=== PATIENT | female | born 1990 | race American Indian/Alaskan Native ===

== ENCOUNTER 2019-01-20 15:17 | Emergency (ER) | payer MEDICAID ==
[2019-01-20 15:39] VITALS: BP 129/86
[2019-01-20] MEDS ORDERED: DECADRON IM ONE (19:35)
--- NOTE | 2019-01-20 19:35 | Emergency Department Report ---
Earache (Pediatric) - HPI Chief Complaint: Earache Stated Complaint: RT EAR PAIN Time Seen by Provider: 01/20/19 19:11 Location: Right Severity: Mild Symptoms: No URI, No Sore Throat, No Trauma to EAC, No History of Moisture in Ear, No Fever, No Vomiting, No Cough, No Shortness of Breath Other History: Patient is a 28-year-old female comes to the ER today complaining of right ear stuffiness. She states she's had this occur in the past due to her sinuses. She's had no recent signs or symptoms of upper respiratory tract infection. She has no major medical problems and is on no medications at home. In the ER she is alert and oriented nontoxic and ambulatory. ED Review of Systems ROS: Stated complaint: RT EAR PAIN Other details as noted in HPI Comment: All other systems reviewed and negative Pediatric Past Medical History - Chronic Health Problems Hx Asthma: No Hx Diabetes: No Hx HIV: No Hx Renal Disease: No Hx Sickle Cell Disease: No Hx Seizures: No Peds Earache exam - Exam General: Vital signs noted. No distress. Alert and acting appropriately. HEENT: Yes Moist Mucous Membranes, No Pharyngeal Erythema, No Pharyngeal Exudates, No Rhinorrhea, No Conjuctival Injection, No Frontal Tenderness, No Maxillary Tenderness Ear: Right TM Bulge, Right TM Erythema, Right Cerumen Impaction, Neither EAC Pain, Neither EAC Discharge Peds Neck exam: Adenopathy: No, Supple: Yes Peds Lung exam: Good Air Exchange: Yes, Wheezes: No, Stridor: No, Cough: No, Nasal Flaring: No, Retractions: No, Use of Accessory Muscles: No Heart: Yes Regular (heart rate 80 on exam), No Murmur Peds abdomen: Abdominal Tenderness: No, Peritoneal Signs: No, Normal Bowel Sounds: Yes, Distention: No Peds Skin Exam: Rash: No, Eczema: No Neurologic: Alert and oriented, no deficits. Musculoskeletal: Unremarkable. ED Course Vital Signs 01/20/19 15:37 Temperature 97.3 F L Pulse Rate 91 H Respiratory 18 Rate Blood Pressure 129/86 O2 Sat by Pulse 100 Oximetry ED Medical Decision Making - Medical Decision Making Simple ear complaint. Right TM bulging and sinus tenderness.. Vital signs stable. Afebrile. Ambulatory. Taking by mouth. ear flushed for cerumen in right decadron for inflammation dc home with dc plan of care Vital Signs 01/20/19 15:37 Temperature 97.3 F L Pulse Rate 91 H Respiratory 18 Rate Blood Pressure 129/86 O2 Sat by Pulse 100 Oximetry Critical care attestation.: If time is entered above; I have spent that time in minutes in the direct care of this critically ill patient, excluding procedure time. ED Disposition Clinical Impression: Excessive cerumen in right ear canal, Sinusitis Disposition: DC-01 TO HOME OR SELFCARE Is pt being admited?: No Does the pt Need Aspirin: No Condition: Stable Additional Instructions: meds as ordered today follow up pcp referral below Referrals: MELITON BURK MD [Primary Care Provider] - 3-5 Days Time of Disposition: 20:03
[2019-01-20] MEDS ORDERED: NACL 0.9% 500 ML IR ONE (20:17)
== END 2019-01-20 21:05 | disposition home or self-care (01) ==
LOC: ED 15:17
DX: H61.21 Impacted cerumen, right ear (principal); J32.9 Chronic sinusitis, unspecified
CPT/HCPCS: 69209; 96372; 99282; J1100

== ENCOUNTER 2019-05-23 12:33 | Emergency (ER) | payer MEDICAID ==
[2019-05-23 13:28] VITALS: BP 139/79
[2019-05-23] MEDS ORDERED: TYLENOL PO ONE (13:40)
--- NOTE | 2019-05-23 14:01 | Emergency Department Report ---
ED Female HPI - General Chief complaint: Vaginal Bleeding Stated complaint: /CRAMPING/BLEEDING Time Seen by Provider: 05/23/19 13:30 Source: patient Mode of arrival: Ambulatory Limitations: No Limitations - History of Present Illness Initial comments: Simeon is a 28 yo female who presents with vaginal bleeding and pelvic cramping. Her LMP occurred in March. She was diagnosed with at a routine employment physical on yesterday. Pelvic cramps are much more severe than menstrual cramps. She is concerned for an abnormal . She has one healthy baby. ONe previous . MD Complaint: vaginal bleeding, pelvic pain -: Gradual, days(s) (2) Severity: moderate Severity scale (0 -10): 6 Quality: cramping Consistency: constant Improves with: none Worsens with: none Are you Now?: Yes Associated Symptoms: vaginal bleeding - Related Data Previous Rx's Medication Instructions Recorded Last Taken Type Cetirizine HCl [ZyrTEC] 10 mg PO DAILY #30 capsule 01/20/19 Unknown Rx Fluticasone [Flonase] 1 spray NS QDAY #1 bottle 01/20/19 Unknown Rx predniSONE [Deltasone] 20 mg PO DAILY #5 tablet 01/20/19 Unknown Rx Allergies Allergy/AdvReac Type Severity Reaction Status Date / Time No Known Allergies Allergy Unverified 01/20/19 15:20 ED Review of Systems ROS: Stated complaint: /CRAMPING/BLEEDING Other details as noted in HPI Comment: All other systems reviewed and negative Constitutional: denies: fever, malaise Respiratory: denies: cough, shortness of breath Gastrointestinal: abdominal pain Genitourinary: abnormal menses ED Past Medical Hx - Past Medical History Previous Medical History?: No Hx Diabetes: No Hx Renal Disease: No Hx Sickle Cell Disease: No Hx Seizures: No Hx Asthma: No Hx HIV: No - Surgical History Past Surgical History?: No - Social History Smoking Status: Never Smoker Substance Use Type: Alcohol - Medications Home Medications: Home Medications Medication Instructions Recorded Confirmed Last Taken Type Cetirizine HCl [ZyrTEC] 10 mg PO DAILY #30 capsule 01/20/19 Unknown Rx Fluticasone [Flonase] 1 spray NS QDAY #1 bottle 01/20/19 Unknown Rx predniSONE [Deltasone] 20 mg PO DAILY #5 tablet 01/20/19 Unknown Rx ED Physical Exam - General Limitations: No Limitations General appearance: alert, in no apparent distress, other (appears well. Appears comfortable) - Head Head exam: Present: atraumatic, normocephalic - Eye Eye exam: Present: normal appearance - ENT ENT exam: Present: mucous membranes moist - Neck Neck exam: Present: normal inspection, full ROM - Respiratory Respiratory exam: Present: normal lung sounds bilaterally. Absent: respiratory distress, wheezes, rales, rhonchi - Cardiovascular Cardiovascular Exam: Present: regular rate, normal rhythm, normal heart sounds. Absent: systolic murmur, diastolic murmur, rubs, gallop - GI/Abdominal GI/Abdominal exam: Present: soft, normal bowel sounds. Absent: distended, tenderness, guarding, rebound - Extremities Exam Extremities exam: Present: normal inspection - Back Exam Back exam: Present: normal inspection - Neurological Exam Neurological exam: Present: alert, oriented X3 - Psychiatric Psychiatric exam: Present: normal affect, normal mood - Skin Skin exam: Present: warm, dry, intact, normal color. Absent: rash ED Course Vital Signs 05/23/19 13:26 Temperature 98.6 F Pulse Rate 101 H Respiratory 16 Rate Blood Pressure 139/79 O2 Sat by Pulse 100 Oximetry ED Medical Decision Making - Lab Data Result diagrams: 05/23/19 13:48 - Radiology Data Radiology results: report reviewed, image reviewed According to wet read of the ultrasound: Questionable gestational sac questionable yoke sac seen but no viable . - Medical Decision Making Threatened miscarriage versus ectopic . I strongly encourage repeat evaluation in the emergency department in 2 days considering equivocal ultrasound results. Critical care attestation.: If time is entered above; I have spent that time in minutes in the direct care of this critically ill patient, excluding procedure time. ED Disposition Clinical Impression: Threatened miscarriage Disposition: DC-01 TO HOME OR SELFCARE Is pt being admited?: No Does the pt Need Aspirin: No Condition: Stable Instructions: Threatened Miscarriage (ED) Additional Instructions: Please return to the ER in 2 days for a repeat ultrasound and beta hCG level. Forms: Work/School Release Form(ED)
[2019-05-23 14:14] LABS: Basophils % (Auto) 0.4 % (0.0-1.8); Eosinophils # (Auto) 0.1 K/mm3 (0.0-0.4); Eosinophils % (Auto) 1.1 % (0.0-4.3); Hemoglobin 11.8 gm/dl (10.1-14.3); Lymphocytes # (Auto) 3.1 K/mm3 (1.2-5.4); Lymphocytes % (Auto) 41.7 % (13.4-35.0); Mean Corpuscular HGB Conc 34 % (30-34); Mean Corpuscular Volume 85 fl (79-97); Monocytes # (Auto) 0.5 K/mm3 (0.0-0.8); Monocytes % (Auto) 6.7 % (0.0-7.3); Platelet Count 380 K/mm3 (140-440); Red Blood Count 4.14 M/mm3 (3.65-5.03); Red Cell Distribution Width 15.3 % (13.2-15.2)
--- NOTE | 2019-05-23 15:18 | Ultrasound Report ---
ULTRASOUND OB LESS THAN EQUAL TO 14 WEEKS FETUS ULTRASOUND OB TRANSVAGINAL HISTORY: Pelvic pain, vaginal bleeding during COMPARISON: None. TECHNIQUE: Routine transabdominal and transvaginal OB ultrasound performed. FINDINGS: Uterus: 12.7 x 4.9 x 6.3 cm. Gestational Sac: There appears to be a gestational sac in the lower uterine segment measuring an aver age of 12 mm which correlates with a 6 week 0 day . Yolk Sac: Normal in appearance. Fetus/Embryo: Not identified. Embryonic/ cardiac activity: Not identified. Ovaries: The right ovary is normal in size and appearance with normal blood flow, measuring 2.8 x 1. 0 x 2.4 cm. The left ovary is normal in size and appearance with normal blood flow, measuring 2.1 x 1.9 x 1.7 cm. Additional findings: None. IMPRESSION An intrauterine gestational sac containing a yolk sac is identified but no convincing pole or f etal heart rate at this time. This could represent early normal . Close interval follow-up i s recommended. Signer Name: Alberto Rodarte Jr, MD Signed: 05/23/2019 3:14 PM Workstation Name: [id number]
== END 2019-05-23 14:54 | disposition home or self-care (01) ==
LOC: ED 12:33
DX: O20.0 Threatened abortion (principal); Z3A.00 Weeks of gestation of pregnancy not specified; Z79.899 Other long term (current) drug therapy
CPT/HCPCS: 36415; 76801; 76817; 84702; 85025; 86900; 86901; 99284